=== PATIENT | female | born 1980 | race Two or more races ===

== ENCOUNTER 2023-05-04 11:43 | Inpatient (IN) | payer OTHER ==
[~2023-05-04] VITALS: Ht 157.5 cm; Wt 61.2 kg
[~2023-05-04 11:43] MED LIST: PERCOCET 5/3251 TAB PO
[2023-05-04 17:57] LABS: HEMATOCRIT 43.8 % (36.0-45.00); HEMOGLOBIN 15.7 g/dL (12.0-15.00); MEAN CELL VOLUME 88.9 fL (80.00-100.00); MEAN CORPUSCULAR HEMOGLOBIN 31.8 pg (27.00-32.0); MEAN CORPUSCULAR HGB CONC 35.7 g/dl (32.0-36.0); RED BLOOD COUNT 4.93 M/uL (4.00-6.00); RED CELL DISTRIBUTION WIDTH 12.8 % (11.5-14.5)
[2023-05-04 18:13] LABS: CALCIUM 8.8 mg/dL (8.5-10.1); CREATININE SERUM 0.66 mg/dL (0.55-1.02); GFR 97.74; POTASSIUM 3.51 mEq/L (3.5-5.1)
[2023-05-04 18:34] LABS: PLATELET COUNT 12 K/uL (150-450)
[2023-05-04 19:44] LABS: INR 1.08; PARTIAL THROMBOPLASTIN TIME 35.3 SECONDS (22.0-34.0); PROTHROMBIN TIME 11.3 SECONDS (9.0-11.5)
[2023-05-05 01:36] LABS: ERYTHROCYTE SEDIMENTATION RATE 10 mm/hr
[2023-05-05 02:28] LABS: PLT IN CITRATE 5 K/uL (150-450)
[2023-05-05 05:55] LABS: URINE APPEARANCE Clear; URINE BILIRRUBIN Negative (NEGATIVE); URINE BLOOD Moderate; URINE COLOR Yellow; URINE GLUCOSE Negative (NEGATIVE); URINE LEUKOCYTE Negative; URINE NITRATE Negative; URINE PROTEIN 30 (NEGATIVE)
[2023-05-05 05:59] LABS: URINE BACTERIA 13.8 uL (0.0-1933); URINE EPITHELIAL CELLS 4.1 uL (0.0-38.8); URINE RBC 73.7 uL (0.0-20.8)
[2023-05-05 13:19] LABS: HEMATOCRIT 36.5 % (36.0-45.00); HEMOGLOBIN 12.8 g/dL (12.0-15.00); MEAN CELL VOLUME 90.6 fL (80.00-100.00); MEAN CORPUSCULAR HEMOGLOBIN 31.7 pg (27.00-32.0); RED BLOOD COUNT 4.03 M/uL (4.00-6.00); RED CELL DISTRIBUTION WIDTH 12.4 % (11.5-14.5)
[2023-05-05 14:01] LABS: PLATELET COUNT 24 K/uL (150-450)
[2023-05-05 14:04] LABS: MANUAL PLATELET COUNT 40
[2023-05-06 07:01] LABS: HEMATOCRIT 43.4 % (36.0-45.00); HEMOGLOBIN 15.4 g/dL (12.0-15.00); MEAN CELL VOLUME 88.9 fL (80.00-100.00); MEAN CORPUSCULAR HEMOGLOBIN 31.6 pg (27.00-32.0); MEAN CORPUSCULAR HGB CONC 35.5 g/dl (32.0-36.0); RED BLOOD COUNT 4.88 M/uL (4.00-6.00); RED CELL DISTRIBUTION WIDTH 12.9 % (11.5-14.5)
[2023-05-06 08:14] LABS: PLATELET COUNT 14 K/uL (150-450)
[2023-05-07 06:28] LABS: HEMATOCRIT 42.7 % (36.0-45.00); HEMOGLOBIN 14.9 g/dL (12.0-15.00); MEAN CELL VOLUME 89.2 fL (80.00-100.00); MEAN CORPUSCULAR HEMOGLOBIN 31.1 pg (27.00-32.0); MEAN CORPUSCULAR HGB CONC 34.8 g/dl (32.0-36.0); RED BLOOD COUNT 4.78 M/uL (4.00-6.00); RED CELL DISTRIBUTION WIDTH 12.9 % (11.5-14.5)
[2023-05-07 07:35] LABS: PLATELET COUNT 31 K/uL (150-450)
[2023-05-08 07:10] LABS: HEMATOCRIT 38.5 % (36.0-45.00); HEMOGLOBIN 13.5 g/dL (12.0-15.00); MEAN CELL VOLUME 90.3 fL (80.00-100.00); MEAN CORPUSCULAR HEMOGLOBIN 31.7 pg (27.00-32.0); MEAN CORPUSCULAR HGB CONC 35.1 g/dl (32.0-36.0); RED BLOOD COUNT 4.27 M/uL (4.00-6.00)
[2023-05-08 08:17] LABS: PLATELET COUNT 46 K/uL (150-450)
== END 2023-05-08 21:10 | disposition home or self-care (01) | DRG 813 ==
LOC: ER 11:44 → MEDJ 21:41
PROVIDERS: Emergency Medicine; General Practice; Internal Medicine; Internal Medicine Hematology & Oncology; ADMIT Internal Medicine; ATTEND Internal Medicine
PROC: 30233R1 Transfusion of Nonautologous Platelets into Peripheral Vein, Percutaneous Approach (ICD-10-PCS; principal; 2023-05-05)
DX: D69.6 Thrombocytopenia, unspecified (principal); K06.8 Other specified disorders of gingiva and edentulous alveolar ridge; B34.9 Viral infection, unspecified